=== PATIENT | male | born 1945 | race Caucasian/White ===

== ENCOUNTER 2024-01-27 10:21 | Outpatient (AMB) | payer MEDICARE, SELFPAY ==
--- NOTE | 2024-01-27 10:26 | A.OFFVIS_ITS ---
Vital Signs 01/27/24 10:31 Height 6 ft 3 in Weight 206 lb BMI 25.7 Intake Visit Reasons: FC- left distal humerus fracture Intake Note: Ana Laura 78 year old right hand dominant male who presents today as a new patient for an evaluation of left distal humerus fracture, DOI 01/17/24. Patient reports that he had a fall on his left side, he was seen by his PCP who ordered xrays and referred to orthopedics. Currently his pain comes with use of his arm. Denies numbness or tingling. He uses a sling that he purchased. Allergies No Known Allergies Allergy (Verified 01/27/24 10:31) Medication List - Last Reconciled 01/27/24 by Flavio Mcgee PA-C No Known Home Meds HPI HPI FC- left distal humerus fracture: Details: 78-year-old right hand dominant male who presents to the office today for an evaluation of left elbow injury after a fall on his left side, 01/17/24. He was seen by his PCP who ordered x-rays and referred him to our office. He currently states he has pain that comes with the use of his arm. He denies any numbness or tingling. He uses a sling that he purchased. [facility] Surgical History (Updated 01/27/24 @ 10:32 by CHU Ruano) History of surgery on arm Social History (Updated 01/27/24 @ 10:32 by CHU Ruano) Patient Tobacco Use Status: Never used Tobacco Current occupational status: retired Current occupation: right hand dominant Review of Systems Const All systems reviewed & are unremarkable except as noted in HPI and below Physical Exam Vital Signs: BMI result Body Mass Index 25.7 Const General: cooperative, healthy appearing, comfortable, no acute distress, well developed and alert Orientation/consciousness: patient oriented x3 HEENT Head: Yes normal to inspection, Yes normocephalic and Yes atraumatic Eyes General: appearance normal, both eyes and all related structures Resp Effort & Inspection: normal respiratory effort and able to speak in complete sentences Cardio Rate: regular rate Peripheral pulses: Peripheral pulses 2+ throughout GI Palpation (GI): Soft to palpation Skin Lesions: no lesions Rashes: no rashes Neuro General: patient oriented x3 Extrem Other: Left elbow: Normal to inspection. He has significant bruising and swelling throughout the elbow into the forearm. He is able to perform ROM of elbow without pain. NVI. Office Procedures AMB Fracture Care Fracture Billing Code: Fracture Billing Code Results Reviewed Results Reviewed: X-rays of the left elbow and left humerus obtained in the office today show a nondisplaced supracondylar fracture. There is an orthopedic hardware in there intact. Assessment & Plan Assessment & Plan (1) Left supracondylar humerus fracture: Code(s): S42.412A - Displaced simple supracondylar fracture without intercondylar fracture of left humerus, initial encounter for closed fracture Category: Medical Qualifiers: Encounter type: initial encounter Fracture type: closed Qualified Code(s): S42.412A - Displaced simple supracondylar fracture without intercondylar fracture of left humerus, initial encounter for closed fracture Plan Images reviewed with Dr. Jarquin office today. The plan is obtained STAT CT scan further evaluate extent of fracture and to determine whether surgical intervention is necessary. In the meantime, he will continue with the sling when he is out of house and he remove for resting when at house. He will avoid any type of lifting with the LUE and see me back once the scan is complete. Orders: Orders XR humerus LT Today R52 - Pain, unspecified XR elbow LT min 3V Today M25.522 - Pain in left elbow CT elbow LT wo IV con Today S42.412A - Displaced simple supracondylar fracture without intercondylar fracture of left humerus, initial encounter for closed fracture Patient Instructions: Scribed for Flavio Mcgee PA-C, by Gary Coppola medical information officer, on 01/27/2024 at 10:30 AM EST.? I, Flavio Mcgee PA-C, have personally reviewed and agree with the information entered by the scribe. Coding Level of Care Code New Pt Level 3 (13389) Complex EM visit Add On G2211 Diagnoses Closed supracondylar fracture of left humerus, initial encounter S42.412A Encounter type: initial encounter Fracture type: closed CPT Codes Fracture Care - Fracture Billing Code: Fracture Billing Code ([id number])
[2024-01-27 10:31] VITALS: BMI 25.7
== END 2024-01-27 13:19 | disposition home or self-care (01) ==
PROVIDERS: Visit Provider Physician Assistant
DX: S42.412A Displaced simple supracondylar fracture without intercondylar fracture of left humerus, initial encounter for closed fracture (principal)
CPT/HCPCS: 99203; G2211

== ENCOUNTER 2024-01-27 10:34 | Outpatient (REF) | payer MEDICARE, SELFPAY ==
--- NOTE | ~2024-01-27 | XR_ITS ---
EXAMINATION: XR ELBOW LEFT 3 VIEWS CLINICAL INFORMATION: Pain in left elbow M25.522. COMPARISON: Same day CT left elbow TECHNIQUE: AP, lateral, and oblique views of the left elbow. FINDINGS: Minimally displaced fracture through the distal humerus, better appreciated on same day corresponding CT imaging. Small fracture fragments noted within the anterior elbow, possibly loose bodies within the joint. Old postsurgical changes of the radial head without acute fracture of the visualized radius or ulna. There is diffuse soft tissue swelling of the elbow with associated joint effusion. XR/XR elbow LT min 3V IMPRESSION: Minimally displaced fracture through the distal humerus, better appreciated on same day corresponding CT imaging. Electronically signed by: Tim Barker MD 04/04/2024 08:53 AM [facility]
--- NOTE | ~2024-01-27 | XR_ITS ---
EXAMINATION: XR HUMERUS LEFT 4 VIEWS CLINICAL INFORMATION: Pain, unspecified R52. COMPARISON: None available TECHNIQUE: AP and lateral views of the left humerus. FINDINGS: There is a screw in the left radial head. Fracture of distal left humerus appreciated in the intercondylar region. There is minimal displacement. The more proximal left humeral shaft appears to be intact. XR/XR humerus LT IMPRESSION: Fracture of distal left humerus in the intercondylar region. Electronically signed by: Jorgito Marsh MD 04/05/2024 02:22 PM [facility]
== END 2024-01-27 10:35 | disposition home or self-care (01) ==
LOC: HO.HOSX 10:34
PROVIDERS: Visit Provider Physician Assistant
DX: S42.412A Displaced simple supracondylar fracture without intercondylar fracture of left humerus, initial encounter for closed fracture (principal)
CPT/HCPCS: 73060; 73080; 99202

== ENCOUNTER 2024-01-27 14:43 | Outpatient (REF) | payer MEDICARE, SELFPAY ==
--- NOTE | ~2024-01-27 | CT_ITS ---
EXAMINATION: CT elbow without contrast, left CLINICAL INFORMATION: Displaced simple supracondylar fracture COMPARISON: X-ray 01/27/2024 TECHNIQUE: Axial imaging. Sagittal and coronal reconstructions. FINDINGS: Atypical positioning of the elbow, which is partially flexed, and rotated in positioning. The elbow was positioned next in the body, with resulting grainy images. These factors markedly limited evaluation of the structures. There is a transverse fracture in the supracondylar region. There is mild displacement present,, more prominent along the medial aspect. This is best appreciated on the sagittal reconstructions. There are multiple ossifications located along the anterior aspect of the distal humerus. This could reflect displaced fracture fragments or loose bodies.. There is ossifications seen along the anterior aspect of the elbow joint as well, which could reflect displaced fracture fragments or loose bodies. There is a screw positioned in the radial head. Surrounding metallic artifact. Metallic artifact and suboptimal imaging limits evaluation for acute changes. There are ossifications adjacent to the proximal radius, suboptimally characterized. These of uncertain etiology. There is marginal osteophytes, joint space loss in the elbow joint, consistent with arthritic changes. Evaluation for joint effusion, and soft tissues and muscles is very limited on the provided images. CT/CT elbow LT wo IV con IMPRESSION: Study is very limited, due to factors detailed above. Consider repeat CT scan, as clinically indicated. On the limited images, the suspected findings are as follows: 1. Acute, transverse mildly displaced distal humeral supracondylar fracture. 2. Multiple ossifications along the anterior aspect of the distal humerus, and in the anterior aspect of the elbow joint could reflect displaced fracture fragments or loose bodies. 3. Elbow joint arthritis. 4. Ossifications adjacent to the proximal radius, suboptimally characterized, of uncertain etiology. 4. There is a screw in the radial head. 5. Additional findings and details as above. Electronically signed by: Darwin Bruce MD 01/27/2024 05:08 PM EDT
== END 2024-01-27 14:44 | disposition home or self-care (01) ==
LOC: HO.CT 14:43
PROVIDERS: PCP Pediatrics; Visit Provider Physician Assistant
DX: S42.412A Displaced simple supracondylar fracture without intercondylar fracture of left humerus, initial encounter for closed fracture (principal)
CPT/HCPCS: 73060; 73080; 73200; 99202

== ENCOUNTER 2024-02-22 11:31 | Outpatient (AMB) | payer MEDICARE, SELFPAY ==
--- NOTE | 2024-02-22 11:48 | MHC.OFFVIS ---
Vital Signs 02/22/24 11:55 Height 6 ft 3 in Weight 206 lb BMI 25.7 Intake Visit Reasons: OV-left distal humerus [id number] follow up Intake Note: Ana Laura 78 year old male who presents today for a follow up of left distal humerus fracture, DOI 01/17/24. Patient reports he is doing a lot better since his injury. He continues to have some soreness with use of his arm and at rest no pain. Allergies No Known Allergies Allergy (Verified 02/22/24 11:55) HPI HPI OV-left distal humerus [id number] follow up: Details: 78-year-old male who returns to the office today for a follow-up of left elbow fracture. He states he has been doing a lot better since his injury. He continues to have mild soreness and swelling in his elbow that comes with use of his arm. He denies any pain at rest. He has been working on physical therapy with benefits. He is doing well overall and has no concerns today. [facility] Surgical History History of surgery on arm Social History Patient Tobacco Use Status: Never used Tobacco Current occupational status: retired Current occupation: right hand dominant Review of Systems Const All systems reviewed & are unremarkable except as noted in HPI and below Physical Exam Vital Signs: BMI result Body Mass Index 25.7 Const General: cooperative, healthy appearing, comfortable, no acute distress, well developed and alert Orientation/consciousness: patient oriented x3 HEENT Head: Yes normal to inspection, Yes normocephalic and Yes atraumatic Eyes General: appearance normal, both eyes and all related structures Resp Effort & Inspection: normal respiratory effort and able to speak in complete sentences Cardio Rate: regular rate Peripheral pulses: Peripheral pulses 2+ throughout GI Palpation (GI): Soft to palpation Skin Lesions: no lesions Rashes: no rashes Neuro General: patient oriented x3 Extrem Other: Left elbow: Normal to inspection. He has no bruising or tenderness over the distal humerus but he does have mild swelling. He is able to perform ROM of elbow without pain. NVI. Results Reviewed Results Reviewed: X-rays of the left elbow and left humerus obtained in the office today show a nondisplaced supracondylar fracture. There is an orthopedic hardware in there intact. Assessment & Plan Assessment & Plan (1) Left supracondylar humerus fracture: Code(s): S42.412A - Displaced simple supracondylar fracture without intercondylar fracture of left humerus, initial encounter for closed fracture Category: Medical Qualifiers: Encounter type: subsequent encounter Fracture type: closed Fracture healing: with routine healing Qualified Code(s): S42.412D - Displaced simple supracondylar fracture without intercondylar fracture of left humerus, subsequent encounter for fracture with routine healing Plan He will continue working with occupational therapy He will avoid any type of lifting, pushing, pulling, or carrying greater than a cellphone. He can discontinue the sling. I would like to see him back in 6 weeks with x-rays, sooner if needed. Orders: Orders XR elbow LT min 3V 02/22/24 M25.522 - Pain in left elbow Patient Instructions: Scribed for Flavio Mcgee PA-C, by Gary Coppola medical laboratory technical officer, on 02/22/2024 at 11:30 AM EST.? I, Flavio Mcgee PA-C, have personally reviewed and agree with the information entered by the scribe. Coding Level of Care Code Global (92870) Diagnoses Closed supracondylar fracture of left humerus with routine healing, subsequent encounter S42.412D Encounter type: subsequent encounter Fracture type: closed Fracture healing: with routine healing
[2024-02-22 11:55] VITALS: BMI 25.7
== END 2024-02-22 15:54 | disposition home or self-care (01) ==
LOC: HO.HOS 11:31
PROVIDERS: PCP Pediatrics; Visit Provider Physician Assistant
DX: S42.412D Displaced simple supracondylar fracture without intercondylar fracture of left humerus, subsequent encounter for fracture with routine healing (principal)
CPT/HCPCS: 99213

== ENCOUNTER 2024-02-22 16:25 | Outpatient (REF) | payer MEDICARE, SELFPAY ==
--- NOTE | ~2024-02-22 | XR_ITS ---
EXAMINATION: XR ELBOW LEFT ELBOW 3 VIEWS CLINICAL INFORMATION: Pain in left elbow M25.522. COMPARISON: XR Left elbow 01/27/2024 TECHNIQUE: AP, lateral, and oblique views of the left elbow. FINDINGS: There is a radial head compression fracture with 0.1 cm compression, not seen previously. Distal humeral supracondylar transverse fracture lucency again seen with signs of interval healing including periosteal reaction. Stable well-corticated osseous fragments overlie the anterior joint space. Radial head screw, as before. Elbow joint and is in anatomic alignment. No joint effusion. XR/XR elbow LT min 3V IMPRESSION: 1. There is a radial head compression fracture with 0.1 cm compression not seen previously, which could represent an acute fracture. Clinical correlation for point tenderness would be helpful. Radial head screw in place. 2. Distal humeral supracondylar transverse fracture lucency again seen with signs of interval healing. Electronically signed by: Stephanie Thacker DO 04/06/2024 10:57 AM [facility]
== END 2024-02-22 16:26 | disposition home or self-care (01) ==
LOC: HO.HOSX 16:25
PROVIDERS: Visit Provider Physician Assistant
DX: M25.522 Pain in left elbow (principal); S42.412D Displaced simple supracondylar fracture without intercondylar fracture of left humerus, subsequent encounter for fracture with routine healing
CPT/HCPCS: 73080; 99212

== ENCOUNTER 2024-03-19 13:51 | Outpatient (RCR) | payer MEDICARE, SELFPAY ==
--- NOTE | 2024-02-17 10:43 | MHC.OT.EP ---
[address] [phone] Occupational Therapy Plan of Care Patient Name: Tate Escobar Date of Evaluation: 02/15/24 Diagnosis: (L) supracondylar ridge FX simple displaced Pain Location: If he tries to use it it gets sharp pain, if he's at rest there is no pain Pain Score: 4 Pain Scale Used: Numeric (0 - 10) Aggravating Factors: Using it, bumping it. Alleviating Factors: Iced in the first few weeks, no longer uses ice. no pain medication. Assessment: 78 y/o M presents s/p (L) supracondylar ridge fx of the humerus DOI: 01/17/24 with decreased ROM and strength. Pt has obvious bruising starting at the tricep that goes down to he distal radius and ulna. Mild edema present at proximal forearm. Pt relies on his to cook and clean the house for him but is fairly IND w/ADL tasks. 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 Pt is IND w/ donning and doffing sling. Today we initiated heat and gentle AROM exercises to perform at home which he tolerated well. Future sessions will focus on AROM, and gentle strengthening when cleared by MD. Pt will benefit from skilled OT services in order to increase ROM and strength in order to restore back to PLOF. Frequency and Duration: The patient will be seen 2x a week for 4 weeks Short Term Goals: pt will be IND and compliant w/HEP Pt will report 0/10 pain with AROM Pt will be IND with edema management Municipal Engineer Goals: Pt will achieve at least 140* of (L) elbow flexion Pt will achieve at least 10* of (L) elbow extension Pt will achieve at least 85* of (L)supination Pt will tolerate 25 pound lift floor to waist with <2/10 pain Treatment Plan: Therapeutic Exercise Therapeutic Activity Home Exercise Program Splinting Patient Education Edema Control ADL Training Ultrasound Paraffin Fluidotherapy MHP Joint Mobilization Soft Tissue Mobilization Kinesiotaping Skilled OT services to increase ROM and strength. Electronically Signed By: Riya Driscoll OT/s Please Sign and return to therapist. Thank you once again for your referral.
--- NOTE | 2024-03-19 14:42 | MHC.OT.DC ---
[address] [phone] F: [phone] Occupational Therapy Discharge Note Patient Name: Tate Escobar Provider: Flavio Mcgee Diagnosis: (L) supracondylar ridge FX simple displaced Date of Evaluation: 02/15/24 Date of Discharge: 03/19/24 Treatments to Date: 8 Cancellations to Date: 0 No Shows to Date: 0 Discharge Status: Achieved Goals Improved Function Independent with HEP Discharge Summary: Mr Escobar is ALMOST NINE WEEKS S/P INJURY. Pt has been progressing very well and has returned to PLOF per patient report. Pt AROM is almost equal bilaterally and within his functional limits. Pt reports no pain with normal daily use with only mild pain around olecranon when he moves it too quick or pushes to his end range of flexion. Pt reports he is confident with his HEP and feels he has all the tools necessary to transition to a home exercise program. Thank you for your referral! Electronically Signed By: Riya Driscoll OT/s Reviewed/agree with student documentation: Yes Therapist: BOGDAN Steele/Adalberto Please Sign and return to therapist, thank you for your referral.
== END 2024-04-02 14:20 | disposition home or self-care (01) ==
LOC: HO.OT 13:51
PROVIDERS: PCP Pediatrics; Visit Provider Physician Assistant
DX: S42.412A Displaced simple supracondylar fracture without intercondylar fracture of left humerus, initial encounter for closed fracture (principal)
CPT/HCPCS: 97110; 97140; 97165; 97530

== ENCOUNTER 2024-04-04 06:02 | Outpatient (REF) | payer MEDICARE, SELFPAY | END 2024-04-04 06:03 | disposition home or self-care (01) | LOC: HO.HOSX 06:02 | PROVIDERS: Visit Provider Physician Assistant | DX: M25.522 Pain in left elbow (principal); S42.412D Displaced simple supracondylar fracture without intercondylar fracture of left humerus, subsequent encounter for fracture with routine healing | CPT/HCPCS: 73080; 99212 ==

== ENCOUNTER 2024-04-04 11:15 | Outpatient (AMB) | payer MEDICARE, SELFPAY ==
--- NOTE | 2024-04-04 11:34 | A.OFFVIS_ITS ---
Intake Visit Reasons: OV-left distal humerus fracture, DOI 01/17/24 Intake Note: Ana Laura 78 year old male who presents today for a follow up of left distal humerus fracture, DOI 01/17/24. X-rays updated. Patient reports he is doing a lot better, states that he has completed OT. He does have some soreness in his e lbow. Allergies No Known Allergies Allergy (Verified 04/04/24 11:36) HPI HPI OV-left distal humerus fracture, DOI 01/17/24: Details: 78-year-old male who returns to the office today for a follow-up of left elbow fracture, 01/17/24. He states he has some soreness in his elbow however he is doing well overall. He also experiences clicking in his bilateral elbows. He has completed working with occupational therapy. He has no other concerns today. [facility] Surgical History History of surgery on arm Social History Patient Tobacco Use Status: Never used Tobacco Current occupational status: retired Current occupation: right hand dominant Review of Systems Const All systems reviewed & are unremarkable except as noted in HPI and below Physical Exam Const General: cooperative, healthy appearing, comfortable, no acute distress, well developed and alert Orientation/consciousness: patient oriented x3 HEENT Head: Yes normal to inspection, Yes normocephalic and Yes atraumatic Eyes General: appearance normal, both eyes and all related structures Resp Effort & Inspection: normal respiratory effort and able to speak in complete sentences Cardio Rate: regular rate Peripheral pulses: Peripheral pulses 2+ throughout GI Palpation (GI): Soft to palpation Skin Lesions: no lesions Rashes: no rashes Neuro General: patient oriented x3 Extrem Other: Left elbow: Normal to inspection. He has no bruising or tenderness over the distal humerus but he does have mild swelling. He is able to perform ROM of elbow without pain. NVI. Results Reviewed Results Reviewed: X-rays of the left elbow and left humerus obtained in the office today show a nondisplaced supracondylar fracture. There is an orthopedic hardware in there intact. Assessment & Plan Assessment & Plan (1) Left supracondylar humerus fracture: Code(s): S42.412A - Displaced simple supracondylar fracture without intercondylar fracture of left humerus, initial encounter for closed fracture Category: Medical Qualifiers: Encounter type: subsequent encounter Fracture healing: with routine healing Fracture type: closed Qualified Code(s): S42.412D - Displaced simple supracondylar fracture without intercondylar fracture of left humerus, subsequent encounter for fracture with routine healing Plan He will continue to increase activities as tolerated and maintain his therapy exercises at home. If he has any concerns or develops any symptoms, he will contact the office, otherwise follow-up as needed. Orders: Orders XR elbow LT min 3V Today M25.522 - Pain in left elbow Patient Instructions: Scribed for Flavio Mcgee PA-C, by Gary Coppola medical operations supervisor, on 04/04/2024 at 11:30 AM EST.? I, Flavio Mcgee PA-C, have personally reviewed and agree with the information entered by the scribe. Coding Level of Care Code Global (23151) Diagnoses Closed supracondylar fracture of left humerus with routine healing, subsequent encounter S42.412D Encounter type: subsequent encounter Fracture healing: with routine healing Fracture type: closed
== END 2024-04-04 12:56 | disposition home or self-care (01) ==
PROVIDERS: PCP Pediatrics; Visit Provider Physician Assistant
DX: S42.412D Displaced simple supracondylar fracture without intercondylar fracture of left humerus, subsequent encounter for fracture with routine healing (principal)
CPT/HCPCS: 99213